=== PATIENT | male | born 1985 | race Caucasian/White ===

== ENCOUNTER 2017-04-13 06:07 | Emergency (ER) | payer OTHER | END 2017-04-13 07:18 | disposition home or self-care (01) | LOC: ER1 06:07 | DX: S51.012A Laceration without foreign body of left elbow, initial encounter (principal); S50.311A Abrasion of right elbow, initial encounter; F17.200 Nicotine dependence, unspecified, uncomplicated; V49.9XXA Car occupant (driver) (passenger) injured in unspecified traffic accident, initial encounter; Y93.89 Activity, other specified; Y92.410 Unspecified street and highway as the place of occurrence of the external cause | CPT/HCPCS: 99284 ==

== ENCOUNTER → 2020-12-25 | Outpatient (CLI) | payer SELFPAY ==
[~2020-12-25] MED LIST: CYCLOBENZAPRINE10 MG PO; TORADOL 10 MG T10 MG PO
== END ==
LOC: RAD 12:16
DX: S39.012A Strain of muscle, fascia and tendon of lower back, initial encounter (principal); S22.089A Unspecified fracture of T11-T12 vertebra, initial encounter for closed fracture; X50.9XXA Other and unspecified overexertion or strenuous movements or postures, initial encounter
CPT/HCPCS: 72110